=== PATIENT | male | born 1955 | race American Indian/Alaskan Native ===

== ENCOUNTER 2017-02-26 08:59 | Outpatient (CLI) | payer OTHER ==
--- NOTE | 2017-02-26 09:41 | XRay Report ---
LUMBAR SPINE RADIOGRAPHS: INDICATION: Back pain. COMPARISON: 01/12/2017. FINDINGS: AP and lateral lumbar spine radiographs again demonstrate mild dextroscoliosis apex about L1-L2. Multilevel degenerative spurring along the lumbar and few lower thoracic levels with greatest L1-L2 bridging osteophyte on the right. Mid to lower lumbar facet arthropathy. Mild disc narrowing at L3-L4 and L4-L5 also suspected. Intact SI joints. Nonobstructive bowel gas pattern. CONCLUSION: No acute lumbar radiographic abnormality with degenerative changes again noted, as described. Thank you for the opportunity to participate in this patient's care.
== END 2017-02-26 09:00 | disposition home or self-care (01) ==
LOC: SPVIMAG 08:59
DX: M47.897 Other spondylosis, lumbosacral region (principal); M25.78 Osteophyte, vertebrae; M41.86 Other forms of scoliosis, lumbar region; M12.88 Other specific arthropathies, not elsewhere classified, other specified site
CPT/HCPCS: 72100